=== PATIENT | male | born 1980 | race Hispanic/Latino ===

== ENCOUNTER 2021-03-03 18:57 | Emergency (ER) | payer SELFPAY ==
--- NOTE | ~2021-03-03 | XR_ITS ---
XR tibia fibula LT 2V DATE: 03/03/2021 19:56 INDICATION: Diffuse left lower leg pain for 4 months TECHNIQUE: AP and lateral views COMPARISON: None FINDINGS: No fracture or dislocation, periosteal reaction or bone destruction of the tibia or fibula. Normal alignment at the knee and ankle joints. IMPRESSION: No significant abnormality Reviewed, dictated and finalized at location A. IMPRESSION: No significant abnormality
[2021-03-03 19:18] VITALS: BP 116/74; PULSE 83; RESP 16; TEMP 37.1; O2SAT 98
--- NOTE | 2021-03-03 19:28 | ED.EXTPRO ---
HPI - Extremity Problem General Chief complaint: Extremity Problem,Nontraumatic Stated complaint: left leg pain Time Seen by Provider: 03/03/21 19:28 Source: patient Mode of arrival: ambulatory Limitations: no limitations History of Present Illness HPI Narrative: Lupillo Francis is a 40 yo male with left lower leg pain with tenderness throughout. States he has had this problem before and for the last 4 months is gradually gotten worse. 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 EYES: Denies visual changes, redness, discharge. ENT: Denies rhinorrhea, congestion, sore throat, otalgia. CARDIOVASCULAR: Denies chest pain, palpitations, edema. RESPIRATORY: Denies dyspnea, wheezing, cough GASTROINTESTINAL: Denies abdominal pain, nausea, vomiting, diarrhea. GENITOURINARY: Denies dysuria, hematuria, abnormal discharge SKIN: Denies rash or itching. NEUROLOGIC: Denies numbness, or focal weakness. PSYCHIATRIC: Denies anxiety or depression. Left anterior lateral pain PMFSH Past Medical History Medical History (Updated 03/03/21 @ 20:20 by Sadie Stapleton CNP) No acute medical problems Social History Social History (Updated 03/03/21 @ 19:51 by Sadie Stapleton CNP) Smoking packs per day: 0.25 Smoking cigarettes per day: 5.0 Smoking status: Current every day smoker Tobacco type: cigarettes Alcohol intake: current Comments At time of signature, I agree with nursing past medical, surgical, social and family history. There is no relevant family history pertinent to the presenting complaint. Exam Narrative: Exam Narrative: GENERAL: This is a well-nourished, well-developed patient, in mild distress. [id number] translating as patient only speaks [place] HEAD: normocephalic, atraumatic. EYES: Sclera clear/white. Vision is grossly intact. EARS: External ears normal,. Hearing grossly intact. NOSE: External nose normal without nasal discharge, nares without redness, no rhinorrhea. THROAT: Mucous membranes moist, NECK: Neck supple, non-tender CARDIOVASCULAR: Regular rate and rhythm without murmurs, gallops, or rubs. RESPIRATORY: Clear to auscultation. Breath sounds equal bilaterally. No wheezes, rales, or rhonchi. GASTROINTESTINAL: Abdomen soft, non-tender, SKIN: warm, intact with no suspicious lesions or rash, good texture and turgor. NEURO: awake, alert, and oriented to person, place and time. There were no obvious focal neurologic abnormalities. Steady gait EXTREMITIES: Normal range of motion. Has no pain when stands on left leg or bends forward or stands on toes-nonreproducible pain in left leg superficial veins more prominent left than right BACK: Nontender without deformity Course Course Emergency Course: Through [id number] discussed with patient that we will treat for sciatica due to work environment and how he is describing pain (burning heavy feeling in anterior lateral part of leg when working) and if this does not improve needs follow-up with a primary care physician for additional testing Started on ibuprofen 600 mg 3 times daily as needed and baclofen 10 mg Xray L knee:negative for fracture or swelling Started on muscle relaxant and ibuprofen Vital Signs Vital signs: Vital Signs Temperature 98.7 F 03/03/21 19:18 Pulse Rate 83 03/03/21 19:18 Respiratory Rate 16 03/03/21 19:18 Blood Pressure 116/74 03/03/21 19:18 Pulse Oximetry 98 03/03/21 19:18 Temperature 98.7 F 03/03/21 19:18 Pulse Rate 83 03/03/21 19:18 Respiratory Rate 16 03/03/21 19:18 Blood Pressure 116/74 03/03/21 19:18 Pulse Oximetry 98 03/03/21 19:18 MDM - Extremity (Nontraumatic)
== END 2021-03-03 20:27 | disposition home or self-care (01) ==
PROVIDERS: Emergency Provider Nurse Practitioner
DX: M79.605 Pain in left leg (principal); F17.210 Nicotine dependence, cigarettes, uncomplicated
CPT/HCPCS: 73590; 99203; G0463